=== PATIENT | female | born 1995 | race Caucasian/White ===

== ENCOUNTER 2022-12-08 17:34 | Emergency (ER) | payer OTHER, MEDICAID ==
[~2022-12-08] VITALS: Ht 162.6 cm; Wt 90.9 kg
[2022-12-08 18:04] VITALS: BP 147/85; PULSE 57
== END 2022-12-08 19:04 | disposition left against medical advice (07) ==
LOC: EDBD 17:34 → ER 17:34
DX: J30.81 Allergic rhinitis due to animal (cat) (dog) hair and dander (principal)